=== PATIENT | male | born 1970 | race Caucasian/White ===

== ENCOUNTER 2023-10-10 13:17 | Emergency (ER) | payer SELFPAY ==
--- NOTE | ~2023-10-10 | CT_ITS ---
EXAMINATION: CT brain wo con DATE: 10/10/2023 14:04 INDICATION: unsteady, dizzy, falls . TECHNIQUE: Computed tomography (CT) of the head was performed without intravenous contrast. The mA wa s adjusted according to patient size. Iterative reconstruction technique was employed. The dose-lengt h product was 605.33 mGy-cm. COMPARISON: None. FINDINGS: No acute intracranial hemorrhage or extra-axial fluid collection. Prominent lateral third and fourth ventricles, with sulcal effacement at the vertex. No intracranial mass or herniation. No acute ischemic infarct. Unremarkable dural venous sinus attenuation. No acute osseous abnormality. Sphenoid retention cyst/polyp, the remaining aerated spaces are clear. Old right thalamic lacunar infarct. Atherosclerotic intracranial calcification. IMPRESSION: Prominent ventricular system, may be secondary to age related change/atrophy however the suggestion o f sulcal effacement at the vertex can be seen with normal pressure hydrocephalus, correlate for clini trena findings of NPH. Comparison to outside studies to assess for interval ventricular system size mariola nge would be helpful. Otherwise, no acute intracranial process detected. Reviewed, dictated and finalized at location K. IMPRESSION: Prominent ventricular system, may be secondary to age related change/atrophy ho wever the suggestion of sulcal effacement at the vertex can be seen with normal pressure hydrocephalus, correlate for clinical findings of NPH. Comparison to outside studies to assess for interval ventricular system size change would be helpful. Otherwise, no acute intracranial process detected.
[2023-10-10 13:24] VITALS: BP 115/71; PULSE 98; RESP 16; TEMP 36.2; O2SAT 99
--- NOTE | 2023-10-10 13:29 | ECG_ITS ---
SEE SCANNED COPY FOR CONFIRMED REPORT MTDD
[2023-10-10 14:00] LABS: Basophils Percent Auto 0.5 % (0.2-1.2); Eosinophils Absolute Auto 0.2 K/mm3 (0-0.3); Eosinophils Percent Auto 2.5 % (0-4.4); Hemoglobin 14.1 g/dL (14.0-18.0); Immature Granulocyte Absolute 0.01 K/mm3 (0.00-0.031); Immature Granulocyte Percent A 0.2 % (0-0.5); Mean Corpuscular HGB Conc 34.4 g/dl (32-36); Mean Corpuscular Volume 78.5 fl (80-100); Mean Platelet Volume 9.3 fl (7.4-10.4); Monocytes Absolute Auto 0.5 K/mm3 (0.1-0.6); Monocytes Percent Auto 7.8 % (2.6-8.5); Neutrophils Absolute Auto 3.4 K/mm3 (1.3-6.7); Platelet Count Result 271 k/mm3 (150-375); Red Blood Count 5.22 M/mm3 (4.6-6.20); Red Cell Distribution Width 13.2 % (11.5-14.5); White Blood Count 5.9 K/mm3 (4.5-10.0)
[2023-10-10 14:12] LABS: Alanine Aminotransferase 14 U/L (6-50); Albumin Level 4.1 g/dL (3.5-5.1); Alkaline Phosphatase 68 U/L (38-126); Anion Gap 5 mmol/L (4-12); Aspartate Amino Transferase 21 U/L (17-59); Bilirubin,Total 0.8 mg/dL (0.2-1.3); Blood Urea Nitrogen 16 mg/dL (9-20); Calcium 9.3 mg/dL (8.4-10.2); Carbon Dioxide 26 mmol/L (22-30); Chloride 103 mmol/L (98-107); Estimated CRCL calculation 76 ml/min; Estimated Glomerular Filt Rate > 60; Glucose 209 mg/dL (65-110); Potassium 4.2 mmol/L (3.4-5.0); Sodium 134 mmol/L (137-145)
[2023-10-10 14:21] LABS: Troponin I 0.023 ng/mL (0.000-0.034)
[2023-10-10 15:42] VITALS: BP 179/105; PULSE 88; RESP 18; O2SAT 100
--- NOTE | 2023-10-10 15:47 | ED.DIZZY ---
HPI - Dizziness General Chief Complaint: Dizziness Stated Complaint: dizzy spells Time Seen by Provider: 10/10/23 13:29 History of Present Illness HPI Narrative: Patient and at bedside have noticed that patient has been having increasing difficulty with his gait for the last month possibly more, denies any recent trauma, seems to be more confused also with difficulty in memory, he also feels recently that he needs to go to the bathroom more often. No headache, nausea or vomiting. Related Data Allergies Allergy/AdvReac Type Severity Reaction Status Date / Time No Known Allergies Allergy Verified 10/10/23 13:21 Review of Systems Review of Systems: All systems reviewed & are unremarkable except as noted in HPI and below [facility] Family History Family History (Updated 01/29/18 @ 07:52 by DOCTOR UNKNOWN) Mother Patient's mother is in good health Sibling Patient's brother is in good health Social History Social History Alcohol intake: current Exam Narrative: EXAMINATION OF ORGAN SYSTEMS/BODY AREAS: Constitutional: Vital signs per nursing GENERAL:[No acute distress, non-toxic appearing.] HEAD: Normal with no signs of head trauma. EYES: EOMI, conjunctiva normal, PERRL ENT: Hearing grossly intact LUNGS: Nonlabored breathing. HEART: [Regular rate and rhythm] ABD: [Soft], [nontender to palpation] EXT: Normal range of motion SKIN: [No rashes or lesions.] NEURO: [Alert and oriented x 3. Finger to nose intact. +Romberg's. Slow unsteady gait on testing. Clear speech.] PSYCH: Normal affect Course Vital Signs Vital signs: Vital Signs Temperature 97.2 F L 10/10/23 13:24 Pulse Rate 98 10/10/23 13:24 Respiratory Rate 16 10/10/23 13:24 Blood Pressure 115/71 10/10/23 13:24 Pulse Oximetry 99 10/10/23 13:24 Temperature 97.2 F L 10/10/23 13:24 Pulse Rate 88 10/10/23 15:42 Respiratory Rate 18 10/10/23 15:42 Blood Pressure 179/105 H 10/10/23 15:42 Pulse Oximetry 100 10/10/23 15:42 MDM - Dizziness MDM Narrative Medical decision making narrative: Patient presenting with 1 month of increasing difficulty with gait, with some increased confusion, no headache or nausea or vomiting, no recent head injury. My differential includes CVA, mass, NPH, dementia including Parkinson's. Labs within acceptable limits, CT head with ventriculomegaly concerning for NPH. Discussed with neurology here who recommended transfer for higher level of care and further evaluation and testing that we cannot do here. Updated the patient and who would like to be transferred to [facility] if possible, Case discussed with Dr. Souza at [facility] who accepts. Lab Data 10/10/23 13:55 10/10/23 13:55 Labs: Lab Results 10/10/23 10/10/23 Range/Units 13:55 16:03 WBC 5.9 (4.5-10.0) K/mm3 RBC 5.22 (4.6-6.20) M/mm3 Hgb 14.1 (14.0-18.0) g/dL Hct 41.0 L (42.0-52.0) % MCV 78.5 L (80-100) fl MCH 27.0 (26-34) pg MCHC 34.4 (32-36) g/dl RDW 13.2 (11.5-14.5) % Plt Count 271 (150-375) k/mm3 MPV 9.3 (7.4-10.4) fl Immature Gran % (Auto) 0.2 (0-0.5) % Neut % (Auto) 57.0 (45.5-73.1) % Lymph % (Auto) 32.0 (18.3-44.2) % [place] % (Auto) 7.8 (2.6-8.5) % Eos % (Auto) 2.5 (0-4.4) % Baso % (Auto) 0.5 (0.2-1.2) % Lymph # (Auto) 1.90 (0.9-3.2) K/mm3 [place] # (Auto) 0.5 (0.1-0.6) K/mm3 Eos # (Auto) 0.2 (0-0.3) K/mm3 Baso # (Auto) 0.0 (0.0-0.1) K/mm3 Abs Immat Gran (auto) 0.01 (0.00-0.031) K/mm3 Absolute Neuts (auto) 3.4 (1.3-6.7) K/mm3 Absolute Nucleated RBC 0.000 (0.0-0.012) K/mm3 Nucleated RBC % 0.0 (0.0-0.2) % Sodium 134 L (137-145) mmol/L Potassium 4.2 (3.4-5.0) mmol/L Chloride 103 (98-107) mmol/L Carbon Dioxide 26 (22-30) mmol/L Anion Gap 5 (4-12) mmol/L BUN 16 (9-20) mg/dL Creatinine 1.00 (0.7-1.3) mg/dL Estim Creat Clear Calc 76 ml/min Estimated GFR > 60 (5
[2023-10-10 16:37] LABS: Appearance Urine Clear (Clear); Bacteria Urine None Seen /hpf; Bilirubin Urine Negative (Negative); Blood Urine 1+ (Negative); Color Urine Yellow (Yellow); Glucose Urine UA 3+ mg/dL (Negative); Ketones Urine Negative (Negative); Leukocyte Esterase Ur Negative LEU/UL (Negative); Need Manual Microscopic Reviewed; Nitrate Urine Negative (Negative); Protein Urine 3+ mg/dL (Negative); Specific Grav Ur 1.016 (1.001-1.035); Squamous Epithelial Cell Urine None Seen /hpf (Few); Urobilinogen Urine 0.2 mg/dL (<2.0); WBC Urine 0-5 /hpf (0-3); pH Urine 5.5 (5.0-9.0)
[2023-10-10 16:42] LABS: Add Urine Microscopic? YES
[2023-10-10 17:31] VITALS: BP 166/109; PULSE 87; RESP 18; O2SAT 100
== END 2023-10-10 18:50 | disposition short-term general hospital (02) ==
PROVIDERS: Emergency Provider Emergency Medicine
DX: R26.81 Unsteadiness on feet (principal); R94.31 Abnormal electrocardiogram [ECG] [EKG]
CPT/HCPCS: 36415; 70450; 80053; 81001; 84484; 85025; 93005; 99284; 99285